=== PATIENT | male | born 1990 | race Caucasian/White ===

== ENCOUNTER 2022-04-04 13:08 | Emergency (ER) | payer OTHER ==
[~2022-04-04] VITALS: Ht 172.7 cm; Wt 90.9 kg
[2022-04-04] MEDS ORDERED: DiphenhydrAMINE HCL 25 MG CAPSULE PO ONE (14:15)
[2022-04-04] MEDS ORDERED: PredniSONE 20 MG TABLET PO ONE (15:15)
[2022-04-04] MEDS ORDERED: PRED-554 PO (15:45)
[2022-04-04 16:09] VITALS: BP 124/70
== END 2022-04-04 16:11 | disposition home or self-care (01) ==
LOC: EMS 13:08
DX: T63.481A Toxic effect of venom of other arthropod, accidental (unintentional), initial encounter (principal); Y92.008 Other place in unspecified non-institutional (private) residence as the place of occurrence of the external cause
CPT/HCPCS: 99283; J7512